=== PATIENT | male | born 1970 | race Caucasian/White ===

== ENCOUNTER 2019-05-31 05:50 | Outpatient (CLI) | payer OTHER ==
[2019-05-31 13:35] LABS: #Eosinphils 0.1 thou/uL (0.0-0.7); #Lymphocytes 1.8 thou/uL (1.20-3.40); #Monocytes 0.5 thou/uL (0.11-0.59); #Neutrophils 4.6 thou/uL (1.40-6.50); %Basophils 0.3 % (0.0-1.0); %Eosinophils 1.1 % (0.0-10.0); %Lymphocytes 25.2 % (21.0-51.0); %Monocytes 7.5 % (0.0-10.0); %Neutrophils 65.8 % (42.0-75.0); Hemoglobin 14.8 g/dL (14.0-18.0); Mean Corpuscular HGB CONC 33.9 g/dL (32.0-36.0); Mean Corpuscular Hemoglobin 29.1 pg (27.0-31.0); Mean Corpuscular Volume 85.9 fL (78.0-98.0); Mean Platelet Volume 8.3 fL (7.4-10.4); Platelet Count 198 thou/uL (130-400); RBC Distribution Width 11.9 % (11.5-14.5); Red Blood Cell (RBC) Count 5.08 mill/uL (4.70-6.10)
[2019-05-31 13:45] LABS: Prothrombin Time 12.7 SEC (12.0-14.7)
[2019-05-31 13:46] LABS: Bacteria/HPF None Seen HPF (None Seen); Bilirubin Negative (Negative); Blood, Urine Negative (Negative); Clarity Clear (Clear); Glucose, Urine (Dipstick) Normal (Negative); Leukocyte Negative Leu/uL (Negative); Nitrite Negative (Negative); Protein, Urine (Dipstick) Negative (Neg-Trace); RBC/HPF 0-3 HPF (0-3); Squamous Epithelial None Seen HPF (0-3); Urobilinogen Normal mg/dL (Less than 2); WBC/HPF 0-3 HPF (0-3)
[2019-05-31 13:59] LABS: Anion Gap 10 mmol/L (10-20); BUN (Urea Nitrogen) 20 mg/dL (8.9-20.6); Calc. Creatinine Clearance 0 mL/min (70-130); Calcium 9.4 mg/dL (7.8-10.44); Carbon Dioxide 25 mmol/L (22-29); Chloride 105 mmol/L (98-107); Estimated GFR-MDRD 77; Glucose 122 mg/dL (70-105); Potassium 4.1 mmol/L (3.5-5.1); Sodium 136 mmol/L (136-145)
== END 2019-05-31 05:51 | disposition home or self-care (01) ==
LOC: LABBT 05:50
PROVIDERS: ATTEND Orthopaedic Surgery
DX: Z01.818 Encounter for other preprocedural examination (principal); M17.11 Unilateral primary osteoarthritis, right knee
CPT/HCPCS: 80048; 81001; 85025; 85610; 87081; 93005; 93010

== ENCOUNTER 2019-05-31 14:00 | Inpatient (IN) | payer OTHER ==
[2019-05-31 12:23] VITALS: BMI 29.5
--- NOTE | 2019-06-07 12:54 | HP ---
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 He had medial meniscal tear over 20 years ago after being kicked by a cow. Over the years, the pain has gradually become worse, the surgery was initially successful, but he is now having pain with prolonged weightbearing on ambulation. He has had progressive problems despite rest, restriction of activities, anti-inflammatory medications, and previous cortisone injection. This pain is now interfering with day-to-day activities including walking, getting dressed, and sleeping. PAST MEDICAL HISTORY: The patient has otherwise good health. He has a history of hypertension, previous open meniscal repair, and dysplastic colon polyps. CURRENT MEDICATIONS: Include, 1. Lisinopril. 2. Flonase. ALLERGIES: HE HAS NO KNOWN ALLERGIES. FAMILY HISTORY: Otherwise unremarkable. SOCIAL HISTORY: Otherwise unremarkable. REVIEW OF SYSTEMS: Otherwise unremarkable. PHYSICAL EXAMINATION: GENERAL: Reveals a healthy male. HEENT: Unremarkable. NECK: Supple. CHEST: Clear. HEART: Regular rate and rhythm. ABDOMEN: Soft, nontender. RECTAL: Deferred. GENITAL: Deferred. EXTREMITIES: Pertinent findings related to the right knee, there is no definite effusion. There is moderate varus deformity. There is tenderness and crepitus over the medial joint line. There is healed surgical incision on the posteromedial aspect of the knee. Range of motion is 0 to 125 degrees. There is 1+ valgus laxity at 30 degrees of flexion range. There is a right antalgic gait. Neurovascular exam is intact. There are palpable distal pulses. DIAGNOSTIC STUDIES: X-rays of the right knee reveal [id number] collapse medially. IMPRESSION: 1. Posttraumatic degenerative arthritis, right knee. 2. History of hypertension. PLAN: Right total knee replacement. The nature of the surgery, length of recovery, and potential complications such as infection, loss of motion, incomplete relief , delayed wound healing, neurovascular injury, thromboembolic phenomena, possible transfusion, and need for revision have been discussed in detail with the patient and his . Job ID: [id number] [facility]
[2019-06-11] MEDS ORDERED: Sodium Chloride 0.9% 100 ML ONE (07:04)
[2019-06-11] MEDS ORDERED: ceFAZolin Sodium (SDC) 2 GM/100 ML BAG ONE (07:04)
[2019-06-11] MEDS ORDERED: Tranexamic Acid 1,000 MG/10 ML VIAL ONE ×2 (07:04→11:33)
[2019-06-11] MEDS ORDERED: Vancomycin HCl 1.5 GM in Sodium Chloride 0.9% 250 ML 300 ML IVPB SCH ×2 (07:15→11:31)
[2019-06-11] MEDS ORDERED: Midazolam HCl 2 mg/2 ml Vial ONE (07:55)
[2019-06-11] MEDS ORDERED: Fentanyl 100 MCG/2 ML VIAL ONE ×2 (07:55→11:53)
[2019-06-11] MEDS ORDERED: Ropivacaine HCl/PF 250 ML in Premix Bag 1 BAG NERVE BLCK SCH (08:34)
[2019-06-11] MEDS ORDERED: Ondansetron PF 4 MG/2 ML Vial IVP PRN ×2 (08:34→11:31)
[2019-06-11] MEDS ORDERED: HYDROcodone/Acetaminophen 10/325 mg Tablet PO PRN ×3 (08:34→11:31)
[2019-06-11] MEDS ORDERED: Promethazine HCl 25 MG/ML VIAL IM PRN ×2 (08:34→11:43)
[2019-06-11] MEDS ORDERED: Zolpidem Tartrate 5 MG TAB PO PRN ×2 (08:34→11:31)
[2019-06-11] MEDS ORDERED: traMADol HCl 50 MG TAB PO PRN ×3 (08:34→11:31)
[2019-06-11] MEDS ORDERED: Fentanyl 100 MCG/2 ML VIAL SLOW IVP PRN ×3 (08:35→11:31)
[2019-06-11] MEDS ORDERED: Bupivacaine/Epinephrine 0.25% 30 ML VIAL ONE (09:20)
[2019-06-11] MEDS ORDERED: diphenhydrAMINE 25 MG CAP PO PRN (11:31)
[2019-06-11] MEDS ORDERED: Promethazine HCl 25 MG/ML VIAL SLOW IVP PRN ×2 (11:31→11:43)
[2019-06-11] MEDS ORDERED: Tranexamic Acid 1,000 MG in Sodium Chloride 0.9% 100 ML IVPB SCH ×2 (11:31→11:45)
[2019-06-11] MEDS ORDERED: Acetaminophen 325 MG TAB PO PRN (11:31)
[2019-06-11] MEDS ORDERED: Ondansetron HCl/PF 4 MG/2 ML Vial IVP PRN (11:43)
--- NOTE | 2019-06-11 12:02 | RAD ---
XR Knee Rt 2 View History: Postop total knee Comparison: None. Findings: Satisfactory appearance right total knee arthroplasty and patellar resurfacing. Expected po stoperative gas and edema. Impression: Satisfactory postoperative appearance.
--- NOTE | 2019-06-11 13:26 | OP ---
DATE OF PROCEDURE: 06/11/2019 RETAIL ATTENDANT: Carlos Hayes PA-C ANESTHESIA: General plus adductor canal and sciatic nerve blocks. PREOPERATIVE DIAGNOSIS: Post-traumatic degenerative arthritis, right knee. POSTOPERATIVE DIAGNOSIS: Post-traumatic degenerative arthritis, right knee. PROCEDURES PERFORMED: Right total knee replacement with computer-assisted navigation with cemented [place] Triathlon components (#6 femoral component, #6 primary tibial baseplate with 16 mm CS plastic insert and A32 all-plastic patellar component). DESCRIPTION OF PROCEDURE: After satisfactory anesthesia was induced in supine position, sequential compression devices were applied to the left leg throughout the procedure. The right leg was then prepped and draped in routine sterile fashion. The limb was elevated and exsanguinated with an Esmarch bandage and the tourniquet was inflated to 300 mmHg. A gently curved medial parapatellar incision was made, carried down through the subcutaneous tissues and bleeding points controlled with Bovie cautery. Medial parapatellar arthrotomy was performed. Patella was dislocated laterally and portions of the fat pad were excised for exposure. There was marked degenerative arthritis of the knee especially medially with large areas of exposed bone. Meniscal remnants and osteophytes were removed. Using the [employer] pinless navigation and appropriate guides, the distal femoral and proximal tibial articular surfaces were excised with an oscillating saw to accept the trial components. It was felt that #6 femoral component, #6 primary tibial baseplate with 16 mm CS plastic insert gave appropriate size, fit, stability, and correction of the preoperative deformity. The patellar articular surface was excised to accept an all-plastic A32 patellar component. There was good range of motion and good patellar tracking. The trial components were removed. The knee was copiously irrigated with pulsatile lavage and the bony surfaces were thoroughly cleaned and dried. The permanent components were then cemented in a single stage using one packet of cement premixed with 1 g of tobramycin powder. Excess cement was removed. There was again good fit and stability of the components. The knee was then copiously irrigated. The medial retinaculum and quadriceps mechanism was closed with interrupted #2 Vicryl and a running #2 Quill. The skin was then injected with 30 mL of 0.25% Marcaine with epinephrine. The subcutaneous tissues were closed with running 0 Quill suture and the skin was closed with running subcuticular 3-0 Monoderm and SurgiSeal skin adhesive. A sterile bulky compressive dressing was applied. The tourniquet was deflated after 78 minutes. The foot promptly pinked up. Sequential compression devices were applied to his operated leg. He was awakened, taken to recovery room in stable condition. There were no apparent intraoperative complications. The estimated blood loss was less than 100 mL. Job ID: [id number]
[2019-06-11] MEDS: Ketorolac Tromethamine 30 MG/ML VIAL IVP SCH ×4 (15:21→17:18)
[2019-06-11] MEDS: CEFAZOLIN 2 GM, Admixture Fee 1 EACH in Sodium Chloride 0.9% 100 ML IVPB SCH (17:18)
[2019-06-11] MEDS: Sodium Chloride 0.9% 1,000 ML IV SCH ×2 (17:19→20:32)
[2019-06-11] MEDS: Aspirin 81 mg Enteric Coated Tablet PO SCH (20:28)
[2019-06-11] MEDS: Lisinopril 10 MG TAB PO SCH (20:28)
[2019-06-11] MEDS: Senokot S 8.6-50 MG TAB PO SCH (20:29)
[2019-06-12] MEDS: Ketorolac Tromethamine 30 MG/ML VIAL IVP SCH ×8 (00:58→19:00)
[2019-06-12] MEDS: CEFAZOLIN 2 GM, Admixture Fee 1 EACH in Sodium Chloride 0.9% 100 ML IVPB SCH (01:00)
[2019-06-12 07:15] LABS: Hemoglobin 13.2 g/dL (14.0-18.0); Mean Corpuscular HGB CONC 34.4 g/dL (32.0-36.0); Mean Corpuscular Hemoglobin 30.5 pg (27.0-31.0); Mean Corpuscular Volume 88.4 fL (78.0-98.0); Mean Platelet Volume 7.7 fL (7.4-10.4); Platelet Count 170 thou/uL (130-400); RBC Distribution Width 11.9 % (11.5-14.5); Red Blood Cell (RBC) Count 4.32 mill/uL (4.70-6.10); White Blood Cell (WBC) Count 9.4 thou/uL (4.8-10.8)
[2019-06-12] MEDS: Sodium Chloride 0.9% 1,000 ML IV SCH ×2 (07:24→17:39)
[2019-06-12] MEDS: HYDROcodone/Acetaminophen 10/325 mg Tablet PO PRN ×4 (08:07→21:40)
[2019-06-12] MEDS: Senokot S 8.6-50 MG TAB PO SCH ×2 (09:23→21:36)
[2019-06-12] MEDS: Multivitamin W/ Minerals 1 TAB PO SCH (09:23)
[2019-06-12] MEDS: Aspirin 81 mg Enteric Coated Tablet PO SCH ×2 (09:23→21:36)
[2019-06-12] MEDS: Lisinopril 10 MG TAB PO SCH (21:36)
[2019-06-13] MEDS: Ketorolac Tromethamine 30 MG/ML VIAL IVP SCH ×4 (00:27→05:54)
[2019-06-13] MEDS: HYDROcodone/Acetaminophen 10/325 mg Tablet PO PRN ×3 (02:30→11:46)
[2019-06-13] MEDS: Sodium Chloride 0.9% 1,000 ML IV SCH (03:09)
[2019-06-13] MEDS: Senokot S 8.6-50 MG TAB PO SCH (08:11)
[2019-06-13] MEDS: Aspirin 81 mg Enteric Coated Tablet PO SCH (08:11)
[2019-06-13] MEDS: Multivitamin W/ Minerals 1 TAB PO SCH (08:11)
--- NOTE | 2019-06-13 09:17 | DIS ---
DATE OF ADMISSION: 06/11/2019 DATE OF DISCHARGE: 06/13/2019 CONSULTANTS: Include [facility] and [facility]. PREOPERATIVE DIAGNOSIS: Post-traumatic degenerative arthritis, right knee. POSTOPERATIVE DIAGNOSIS: Post-traumatic degenerative arthritis, right knee. PROCEDURE PERFORMED: Right total knee replacement with computer-assisted navigation with cemented [place] Triathlon components. BRIEF HOSPITAL COURSE: This is a 48-year-old male, who was indicated for the above-mentioned procedure after failing conservative management. He did well with surgery and postoperatively was admitted to [address], where he worked with physical and occupational therapist. The pain was managed by [facility]. He also received postoperative antibiotics. On postoperative day #2, he was discharged home. No complications incurred during his hospital course. DISCHARGE DISPOSITION: Home. DISCHARGE CONDITION: Stable. DISCHARGE INSTRUCTIONS: The patient will follow up with outpatient physical therapy. He will follow up with Dr. Lilly as scheduled. He will keep his surgical wound clean, dry, and covered until his followup. DISCHARGE MEDICATIONS: See MAR. Job ID: [id number]
[2019-06-13 11:50] VITALS: BP 167/84; TEMP 98.8
== END 2019-06-13 12:44 | disposition home or self-care (01) | DRG 470 ==
LOC: SURG A 06-11 06:44 → SJJU 06-11 13:00
PROVIDERS: ADMIT Orthopaedic Surgery; ATTEND Orthopaedic Surgery
PROC: 0SRC0J9 Replacement of Right Knee Joint with Synthetic Substitute, Cemented, Open Approach (ICD-10-PCS; principal; 2019-06-11)
PROC: 8E0YXBZ Computer Assisted Procedure of Lower Extremity (ICD-10-PCS; 2019-06-11)
DX: M17.31 Unilateral post-traumatic osteoarthritis, right knee (principal); C18.9 Malignant neoplasm of colon, unspecified; I10 Essential (primary) hypertension; Z86.010 Personal history of colon polyps
CPT/HCPCS: 36415; 85027; C1713; C1776; J0690; J1885; J2250; J2795; J3010; J3370; J3490; J7050